=== PATIENT | male | born 1965 | race African-American/Black ===

== ENCOUNTER → 2017-05-25 | Outpatient (CLI) | payer OTHER ==
[~2017-05-25] MED LIST: ACID CONTROLLER20 MG PO; ASPIRIN325 PO; BISACODYL SUPP10 MG RECTAL; CATAPRES TTS TRANSDERM; CEFUROXIME500 MG PO; CENTRUM SILVER1 EAC4 PO; CEPACOL SORE T1 EAC8 PO; CEPACOL SORE T1 EAC9 PO; COLACE100 MG PO; DILTIAZEM ER240 MG PO; FISH OIL 1,001000 M2 PO; KEPPRA 500 MG500 M1 PO; LAMISIL TOP; LEXAPRO PO; LEXAPRO5 MG PO; LIORESAL 10 MG10 MG PO; LIPITOR 20 MG T20 M1 PO; LISINOPRIL20 MG PO; LOTENSIN20 MG PO; MAG-AL PLUS SUS30 ML PO; MILK OF MA2400 MG/10 PO; MOM PO; NEURONTIN 300300 M1 PO; NITROGLYCERIN0.4 MG SUBLING; NORCO 5-325 TA1 EACH PO; NORVASC10 MG PO; NYAMYC15 GM TOP; PEG3350 POWDER PO; PERCOCET 7.5-51 EACH PO; ROBITUSSIN COU1 EAC2 PO; SENNA8.6 MG PO; SENOKOT-S1 TA1 PO; TYLENOL325 MG PO; ZOFRAN DISSOLVE
== END ==
LOC: SPEECH 11:18 → RAD 11:18
DX: K21.9 Gastro-esophageal reflux disease without esophagitis (principal); I10 Essential (primary) hypertension; G81.10 Spastic hemiplegia affecting unspecified side; K59.00 Constipation, unspecified

== ENCOUNTER → 2017-07-30 | Outpatient (CLI) | payer OTHER ==
[~2017-07-30] MED LIST changes: +ASPIR 8181 MG PER TUBE
== END ==
LOC: RAD 10:02
DX: R13.12 Dysphagia, oropharyngeal phase (principal); I10 Essential (primary) hypertension; E78.2 Mixed hyperlipidemia; F32.89 Other specified depressive episodes; K21.9 Gastro-esophageal reflux disease without esophagitis; K59.00 Constipation, unspecified

== ENCOUNTER 2019-04-13 13:00 | Emergency (ER) | payer OTHER, BC ==
[~2019-04-13] VITALS: Ht 172.7 cm; Wt 70.3 kg
--- NOTE | ~2019-04-13 | EMS ---
[place] [address] EMS Patient Care Report Name: KATALINA AUGUSTIN Room #: PRE ER M.R.#: [id number] Admission: Attend Phys: Discharge: Date of : 69 Report #: [id number] THIS REPORT FOR: //name// Report Transmitted: 04/13/2019 12:37 EMS Care Summary [place], [place]/[facility] Incident [id number] @ 04/13/2019 12:33 Incident Location [address] [place] [address] Patient KATALINA AUGUSTIN Male, 53 Years 1965 Patient Address [address] [place] [address] Patient History Hypertension,Stroke/CVA, Patient Allergies Iodine, Patient Medications Keppra, Lisinopril, Aspirin, Lipitor, Baclofen, Chief Complaint LEFT ARM AND LEG WEAKNESS Disposition Transported No Lights/[place] Dispatch Reason Falls Transported To [facility] Narrative M36 RESPONDED EMERGENT TO A FALL. CALL INITIALLY CAME OUT A LIFT ASSIT, T15 RESPONDED. PT COMPLAINED OF ARM WEAKNESS AND TIGHTNESS, CLL UPGRADED TO A FALL. ON ARRIVAL M36 FOUND T15 WITH PT. PT REPORTEDLY HAD A STROKE 5 YEARS PRIOR WITH RESIDUAL LEFT SIDED WEAKNESS AND DEFICITS A BASELINE. C/[place] [address] EMS Patient Care Report Name: KATALINA AUGUSTIN Room #: PRE NICK Lorenzo#: [id number] Admission: Attend Phys: Discharge: Date of : 69 Report #: [id number] WEAKNESS AND "TIGHTNESS" OF LEFT ARM AND LEG. PT STATED HE JUST GOT OUT OF A CORRECTION, NEW RESIDENCE APPEARED TO BE SET UP TO BE ADA COMPLIANT. PT STATED HE FELL 30 MINUTES PRIOR TO M36 ARRIVAL. PT FOUND SITTING IN HIS WHEELCHAIR CONSCIOUS AND ALERT TO PERSON PLACE TIME AND EVENT, BREATHING RATE AND DEPTH ADEQUATE, SKIN PWD, RADIAL PULSES PRESENT STEADY AND STRONG WITHIN NORMAL LIMITS, CAP REFILL UNDER 2 SECONDS. PT DENIED HITTING HIS HEAD, NECK OR BACK PAIN, DENIED TAKING BLOOD THINNERS OR ANY LOSS OF CONSCIOUSNESS. NO OBVIOUS INJURIES TO THE HEAD OR NECK. CSM IN ALL EXTREMITIES BASELINE, NO MOTOR DEFICITS PER PT, PT DENIED PAIN ANYWHERE IN IS BODY. TRAUMA ASSESSMENT REVEALED NO OBVIOUS DCAP-BTLS. PT MOVED TO COT BY T15 AND M36 BY HAVING PT STAND WITH ASSISTANCE, PIVOT AND SIT. PT PLACED IN A POSITION OF COMFORT, SEMI-FOWLERS, AND SECURED WITH LOCKING SIDE BARS AND SEATBELTS. PT LOADED INTO THE AMBULANCE BY T15 WITHOUT INCIDENT.. T15 PLACED IN SERVICE VITALS TAKEN NOTED. TRANSPORT INITIATED TO [facility] ([facility]) PER PT REQUEST. RADIO REPORT GIVEN EN ROUTE TO [facility], NO CHANGE IN PT CONDITION OR PRESENTATION THROUGHOUT TRANSPORT. ENTIRE TRANSPORT OCCURRED WITHOUT INCIDENT. ON ARRIVAL TO [facility], PT UNLOADED AND MOVED TO ED BY M36 WITHOUT INCIDENT. PT MOVED TO 16 DIRECTED, MOVED TO THE HOSPITAL BED USING THE SHEET DRAW METHOD BY M36 AND ED STAFF. PT PLACED IN A POSITION OF COMFORT, SECURED WITH LOCKING SIDE RAILS. CARE TRANSFERRED TO ED STAFF. VERBAL REPORT GIVEN TO RN (BRENDEN), SIGNATURES OBTAINED, BELONGINGS LEFT WITH PT IN RM. M36 RETURNED TO SERVICE. Initial Vitals @12:50P: 96,R: 16,BP: 132/87,Pain: 0/10,GCS: 15,CO: 0,SpO2: 100,Revised Trauma: 12, @12:44P: 98,R: 16,BP: 121/79,Pain: 0/10,GCS: 15,SpO2: 98,Revised Trauma: 12, Assessments @12:38MENTAL:Person Oriented,Time Oriented,Event Oriented,Place Oriented,SKIN:HEENT:Head/Face: No Abnormalities,Neck/Airway: No Abnormalities,LUNG SOUNDS:General: No Abnormalities,ABDOMEN:General: No Abnormalities,PELVIS//GI:No Abnormalities,EXTREMITIES:Left Arm: Weakness,Left Leg: Weakness,Capillary Refill: Left Upper: < 2 Sec,Right Arm: No Abnormalities,Right Leg: No Abnormalities,PULSE:Radial: 2+ Normal,NEURO:Weakness Left-Sided, Impression Generalized Weakness Procedures @12:40StretcherResponse: Unchanged@12:38ALS AssessmentResponse: UnchangedSucceeded@12:50ALS AssessmentResponse: UnchangedSucceeded Timeline [address] [address] EMS Patient Care Report Name: CHARLIKATALINA Room #: PRE NICK M.RChepe#: [id number] Admission: Attend Phys: Discharge: Date of : 69 Report #: [id number] 12:13,Call Received 12:13,Dispatch Notified 12:33,Dispatched 12:34,En Route 12:37,On Scene 12:38,At Patient 12:38,ALS Assessment,Response: UnchangedSucceeded, 12:40,Stretcher,Response: Unchanged 12:44,BP: 121/79 M,PULSE: 98,RR: 16 R,SPO2: 98 Ox,ETCO2: ,BG: ,PAIN: 0,GCS: 15, 12:45,Depart Scene 12:50,ALS Assessment,Response: UnchangedSucceeded, 12:50,BP: 132/87 M,PULSE: 96,RR: 16 R,SPO2: 100 Ox,ETCO2: ,BG: ,PAIN: 0,GCS: 15, 12:50,At Destination 13:12,Call Closed Disclaimer v1.1 Copyright 2019 [employer] This EMS Care Summary contains data elements from the applicable legal record (which may be displayed differently). It is designed to provide pertinent information for the following purposes: continuity of care, clinical quality, and state data reporting. The complete legal record is available to ED staff and administrators of the receiving hospital in [employer]'s Patient Tracker. All data is provided "as is."
[2019-04-13 13:32] LABS: ABSOLUTE NEUTROPHILS 3.1 thou/uL (1.4-8.2); BASOPHILS 0.6 % (0.0-2.0); EOSINOPHILS 14.1 % (0.0-3.0); HEMATOCRIT 38.2 % (42.0-52.0); HEMOGLOBIN 12.5 gm/dL (14.0-18.0); LYMPHOCYTES 12.6 % (24.0-44.0); MCH 30.4 pg (26.0-34.0); MCHC 32.7 g/dL (28.0-37.0); MCV 93.2 fL (80.0-100.0); MONOCYTES 8.7 % (1.0-8.0); PLATELET COUNT 262 thou/uL (150-400); RDW 14.3 % (10.5-14.5); WBC 4.9 thou/uL (4.0-11.0)
[2019-04-13 13:39] LABS: CALCIUM 9.3 mg/dL (8.5-10.1); CREATININE 1.1 mg/dL (0.7-1.3); POTASSIUM 3.9 mmol/L (3.5-5.1)
[2019-04-13 13:45] LABS: ALBUMIN 3.7 g/dL (3.4-5.0); TOTAL BILIRUBIN 0.3 mg/dL (<0.1-1.0); TOTAL PROTEIN 7.1 g/dL (6.4-8.2)
[2019-04-13 16:30] VITALS: BP 111/67
--- NOTE | 2019-04-14 08:24 | EKG ---
[address] [place] [employer] [address] ELECTROCARDIOGRAM REPORT Name: KATALINA AUGUSTIN Room #: DEP NICK Lorenzo#: [id number] Admission: 04/13/19 Attend Phys: Discharge: 04/13/19 Date of : 69 Report #: [id number] THIS REPORT FOR: //name// [facility] ED Test Date: 2019-04-13 Test Time: 13:02:33 Pat Name: KATALINA AUGUSTIN Department: Room: Gender: M Seo Specialist: : 1965 Requested By: Joel Conte Order Number: [id number] MD: Jalen Chin Measurements Intervals [place] Rate: 94 P: 34 VA: 166 QRS: 31 QRSD: 85 T: 47 QT: 344 QTc: 431 Interpretive Statements Sinus rhythm No significant abnormality Compared to ECG 01/23/2014 03:21:04 T-wave abnormality no longer present Electronically Signed On 04-14-2019 8:23:59 CDT by Jalen Chin [email or web address] <ELECTRONICALLY SIGNED> By: Jalen Chin MD, [facility] 04/14/19 0823 1302 1302 Jalen Chin MD, FACC /EPI
== END 2019-04-13 16:51 | disposition home or self-care (01) ==
LOC: ER 13:00
PROVIDERS: Emergency Medicine
DX: M25.552 Pain in left hip (principal); M79.602 Pain in left arm; I10 Essential (primary) hypertension; Z86.73 Personal history of transient ischemic attack (TIA), and cerebral infarction without residual deficits; Z91.041 Radiographic dye allergy status; Z91.013 Allergy to seafood; W18.39XA Other fall on same level, initial encounter; Y93.89 Activity, other specified; Y92.009 Unspecified place in unspecified non-institutional (private) residence as the place of occurrence of the external cause; Y99.8 Other external cause status

== ENCOUNTER → 2020-01-23 | Outpatient (CLI) | payer OTHER, BC | LOC: HYPER 12:14 | PROVIDERS: ATTEND Emergency Medicine | DX: I83.025 Varicose veins of left lower extremity with ulcer other part of foot (principal); L97.522 Non-pressure chronic ulcer of other part of left foot with fat layer exposed; L89.893 Pressure ulcer of other site, stage 3; I83.023 Varicose veins of left lower extremity with ulcer of ankle; L97.321 Non-pressure chronic ulcer of left ankle limited to breakdown of skin; R60.0 Localized edema; E78.5 Hyperlipidemia, unspecified; G63 Polyneuropathy in diseases classified elsewhere; G81.12 Spastic hemiplegia affecting left dominant side; I73.9 Peripheral vascular disease, unspecified; I10 Essential (primary) hypertension; Z86.73 Personal history of transient ischemic attack (TIA), and cerebral infarction without residual deficits ==

== ENCOUNTER → 2020-01-31 | Outpatient (CLI) | payer OTHER, BC | LOC: HYPER 09:47 | PROVIDERS: ATTEND Emergency Medicine | DX: I83.025 Varicose veins of left lower extremity with ulcer other part of foot (principal); L89.893 Pressure ulcer of other site, stage 3; L97.522 Non-pressure chronic ulcer of other part of left foot with fat layer exposed; I83.023 Varicose veins of left lower extremity with ulcer of ankle; L97.321 Non-pressure chronic ulcer of left ankle limited to breakdown of skin; I87.2 Venous insufficiency (chronic) (peripheral); I10 Essential (primary) hypertension; I73.9 Peripheral vascular disease, unspecified; G63 Polyneuropathy in diseases classified elsewhere; G81.12 Spastic hemiplegia affecting left dominant side; R60.0 Localized edema; E78.5 Hyperlipidemia, unspecified; Z86.73 Personal history of transient ischemic attack (TIA), and cerebral infarction without residual deficits ==

== ENCOUNTER → 2020-02-02 | Outpatient (CLI) | payer OTHER, BC | LOC: SJCVCIMAG 09:30 | PROVIDERS: ATTEND Internal Medicine Cardiovascular Disease | DX: I73.9 Peripheral vascular disease, unspecified (principal) ==

== ENCOUNTER → 2020-02-14 | Outpatient (CLI) | payer OTHER, BC | LOC: HYPER 07:48 | PROVIDERS: ATTEND Emergency Medicine | DX: I83.025 Varicose veins of left lower extremity with ulcer other part of foot (principal); L89.893 Pressure ulcer of other site, stage 3; L97.522 Non-pressure chronic ulcer of other part of left foot with fat layer exposed; I83.023 Varicose veins of left lower extremity with ulcer of ankle; L97.321 Non-pressure chronic ulcer of left ankle limited to breakdown of skin; I87.2 Venous insufficiency (chronic) (peripheral); G63 Polyneuropathy in diseases classified elsewhere; G81.12 Spastic hemiplegia affecting left dominant side; R60.0 Localized edema; I10 Essential (primary) hypertension; E78.5 Hyperlipidemia, unspecified; I73.89 Other specified peripheral vascular diseases; Z86.73 Personal history of transient ischemic attack (TIA), and cerebral infarction without residual deficits ==

== ENCOUNTER → 2020-02-28 | Outpatient (CLI) | payer OTHER, BC | LOC: HYPER 14:22 | PROVIDERS: ATTEND Emergency Medicine | DX: I83.023 Varicose veins of left lower extremity with ulcer of ankle (principal); L97.321 Non-pressure chronic ulcer of left ankle limited to breakdown of skin; I83.025 Varicose veins of left lower extremity with ulcer other part of foot; L89.893 Pressure ulcer of other site, stage 3; L97.522 Non-pressure chronic ulcer of other part of left foot with fat layer exposed; I87.2 Venous insufficiency (chronic) (peripheral); G63 Polyneuropathy in diseases classified elsewhere; G81.12 Spastic hemiplegia affecting left dominant side; R60.0 Localized edema; I73.89 Other specified peripheral vascular diseases; G81.94 Hemiplegia, unspecified affecting left nondominant side; E78.5 Hyperlipidemia, unspecified; I10 Essential (primary) hypertension; Z86.73 Personal history of transient ischemic attack (TIA), and cerebral infarction without residual deficits ==

== ENCOUNTER → 2020-03-13 | Outpatient (CLI) | payer OTHER, BC | LOC: HYPER 13:25 | PROVIDERS: ATTEND Emergency Medicine | DX: I83.025 Varicose veins of left lower extremity with ulcer other part of foot (principal); L89.893 Pressure ulcer of other site, stage 3; L97.522 Non-pressure chronic ulcer of other part of left foot with fat layer exposed; I83.023 Varicose veins of left lower extremity with ulcer of ankle; L97.321 Non-pressure chronic ulcer of left ankle limited to breakdown of skin; I87.2 Venous insufficiency (chronic) (peripheral); G63 Polyneuropathy in diseases classified elsewhere; I73.89 Other specified peripheral vascular diseases; G81.12 Spastic hemiplegia affecting left dominant side; R60.0 Localized edema; E78.5 Hyperlipidemia, unspecified; Z86.73 Personal history of transient ischemic attack (TIA), and cerebral infarction without residual deficits ==

== ENCOUNTER → 2020-05-15 | Outpatient (CLI) | payer OTHER | LOC: CAT 05-08 07:43 | PROVIDERS: ATTEND Family Medicine | DX: Z13.6 Encounter for screening for cardiovascular disorders (principal); I25.10 Atherosclerotic heart disease of native coronary artery without angina pectoris; E78.00 Pure hypercholesterolemia, unspecified ==